=== PATIENT | female | born 1995 | race Caucasian/White ===

== ENCOUNTER 2016-06-26 19:21 | Emergency (ER) | payer OTHER ==
[~2016-06-26] VITALS: Ht 170.2 cm; Wt 60.9 kg
[~2016-06-26 19:21] MED LIST: FLEXERIL10 MG PO
[2016-06-26 20:24] VITALS: BP 123/74
== END 2016-06-26 20:24 | disposition home or self-care (01) ==
LOC: EME 19:21 → EXP 19:21
DX: J06.9 Acute upper respiratory infection, unspecified (principal); Z33.1 Pregnant state, incidental; Z3A.20 20 weeks gestation of pregnancy
CPT/HCPCS: 87651 90; 99281; 99284

== ENCOUNTER 2016-07-17 14:48 | Outpatient (CLI) | payer OTHER ==
[~2016-07-17] VITALS: Ht 170.2 cm; Wt 61.3 kg
[2016-07-17 14:49] VITALS: BP 117/78
[2016-07-17] MEDS ORDERED: FERROUS SULFAT325 MG PO (15:16)
[2016-07-17] MEDS ORDERED: PRENATAL TABLE1 EAC3 PO (15:16)
[2016-07-17 15:38] VITALS: BP 109/70
[2016-07-17 15:48] LABS: EOSINOPHIL (%) 0.5 % (0-5); EOSINOPHIL COUNT 0.1 K/uL (0-0.3); HEMATOCRIT 31.2 % (36.0-46.0); IMMATURE GRANULOCYTE (%) 0.4 % (0.0-0.7); IMMATURE GRANULOCYTE COUNT 0.1 K/uL; LYMPHOCYTE COUNT 0.8 K/uL (1.0-2.8); MCH 29.1 PG (29.0-34.0); MCHC 33.7 G/DL (30.0-36.0); MCV 86.4 FL (83-99); MONOCYTE (%) 4.1 % (3-12); MONOCYTE COUNT 0.5 K/uL (0-0.8); NEUTROPHIL (%) 88.4 % (45-76); NEUTROPHIL COUNT 10.7 K/uL (1.8-6.4); PLATELET COUNT 252 K/uL (156-360); RBC DIS.WIDTH-CV 13.8 % (11.8-14.6); RBC DIS.WIDTH-SD 42.6 % (39-53); RED BLOOD COUNT 3.61 M/uL (3.80-5.20); WHITE BLOOD COUNT 12.1 K/uL (4.1-10.2)
[2016-07-17 15:55] LABS: ADD MIUA? YES; BILIRUBIN NEGATIVE; BLOOD NEGATIVE; COLOR YELLOW ((YELLOW)); GLUCOSE (STRIP) NEGATIVE; KETONES NEGATIVE; LEUKOCYTES SMALL; NITRITE NEGATIVE; PROTEIN (STRIP) NEGATIVE; SPECIFIC GRAVITY 1.015 (1.000-1.030); UROBILINOGEN 0.2 MG/DL (0.2-1.0)
[2016-07-17 16:18] LABS: ANION GAP 7 MEQ/L (2-14); CHLORIDE 104 MEQ/L (99-109); POTASSIUM 3.6 MEQ/L (3.7-5.4); SAMPLE HEMOLYSIS CHECK 0; SAMPLE ICTERIC CHECK 0; SAMPLE LIPEMIA CHECK 0; SODIUM 135 MEQ/L (136-147); TOTAL BILIRUBIN 0.5 MG/DL (0.0-1.0)
[2016-07-17 16:24] LABS: ALKALINE PHOSPHATASE 79 IU/L (3-129); GFR ESTIMATE (CALCULATED) > 59 mL/min/; GLUCOSE 78 mg/dL (70-99); UREA NITROGEN (BUN) 8 mg/dL (9-23)
[2016-07-17 16:26] VITALS: BP 107/64
[2016-07-17 17:12] LABS: BACTERIA 2+ /HPF; EPITHELIAL CELLS 2+ /HPF; MUCUS 1+ /LPF; RED BLOOD CELLS 0-5 /HPF (0-5); UCUL ADDED? YES
== END 2016-07-17 17:10 | disposition home or self-care (01) ==
LOC: LDRP-OP 14:48 → 2WEST 14:49 → LDRP-OP 11-13 11:34
PROVIDERS: Nurse Practitioner
DX: O21.0 Mild hyperemesis gravidarum (principal); O99.89 Other specified diseases and conditions complicating pregnancy, childbirth and the puerperium; Z3A.27 27 weeks gestation of pregnancy
CPT/HCPCS: 59025; 80053; 81003; 85025; 87086; G0378; J2765; J7120

== ENCOUNTER 2016-07-21 06:49 | Outpatient (CLI) | payer OTHER ==
[~2016-07-21] VITALS: Ht 170.2 cm; Wt 62.1 kg
[~2016-07-21 06:49] MED LIST changes: +FERROUS SULFAT325 MG PO; +PRENATAL TABLE1 EAC3 PO
[2016-07-21 07:06] VITALS: BP 115/71
== END 2016-07-21 12:04 | disposition home or self-care (01) ==
LOC: LDRP-OP 06:49 → 2WEST 06:50 → LDRP-OP 11-13 17:19
DX: O26.852 Spotting complicating pregnancy, second trimester (principal); Z3A.28 28 weeks gestation of pregnancy; W19.XXXA Unspecified fall, initial encounter; Y99.8 Other external cause status
CPT/HCPCS: 59025; 85460; G0378

== ENCOUNTER 2016-08-18 04:01 | Outpatient (CLI) | payer OTHER ==
[2016-08-18 04:25] VITALS: BP 108/77
[2016-08-18 08:46] VITALS: BP 133/77
== END 2016-08-18 09:13 | disposition home or self-care (01) ==
LOC: LDRP-OP 04:01 → 2WEST 04:02 → LDRP-OP 11-13 19:09
DX: Z03.79 Encounter for other suspected maternal and fetal conditions ruled out (principal); W19.XXXA Unspecified fall, initial encounter; Z3A.32 32 weeks gestation of pregnancy
CPT/HCPCS: 59025; G0378

== ENCOUNTER 2016-09-27 14:12 | Outpatient (CLI) | payer OTHER ==
[2016-09-27 15:30] VITALS: BP 126/79
== END 2016-09-27 16:19 | disposition home or self-care (01) ==
LOC: LDRP-OP 14:12 → 2WEST 14:13 → LDRP-OP 11-14 09:17
DX: O47.1 False labor at or after 37 completed weeks of gestation (principal); Z3A.37 37 weeks gestation of pregnancy
CPT/HCPCS: 59025; G0378

== ENCOUNTER 2016-10-09 07:34 | Inpatient (IN) | payer OTHER ==
[~2016-10-09] VITALS: Ht 170.2 cm; Wt 64.8 kg
[2016-10-09] VITALS (16 sets, daily range): BP systolic 100–120; BP diastolic 56–86
[2016-10-09 09:12] LABS: EOSINOPHIL (%) 0.1 % (0-5); HEMATOCRIT 35.9 % (36.0-46.0); IMMATURE GRANULOCYTE (%) 0.7 % (0.0-0.7); IMMATURE GRANULOCYTE COUNT 0.1 K/uL; INSTRUMENT ABS NEUTROPHIL CT 11.7 K/uL; LYMPHOCYTE COUNT 1.5 K/uL (1.0-2.8); MCH 27.5 PG (29.0-34.0); MCHC 32.6 G/DL (30.0-36.0); MCV 84.5 FL (83-99); MEAN PLAT.VOLUME 12.2 uM^3 (9.5-12.4); MONOCYTE (%) 4.9 % (3-12); MONOCYTE COUNT 0.7 K/uL (0-0.8); NEUTROPHIL (%) 83.4 % (45-76); NEUTROPHIL COUNT 11.7 K/uL (1.8-6.4); PLATELET COUNT 240 K/uL (156-360); RBC DIS.WIDTH-CV 14.4 % (11.8-14.6); RBC DIS.WIDTH-SD 43.4 % (39-53); RED BLOOD COUNT 4.25 M/uL (3.80-5.20)
[2016-10-09] MEDS ORDERED: IBUPROFEN800 MG PO (15:43)
[2016-10-10 07:20] VITALS: BP 118/67
[2016-10-10 15:10] VITALS: BP 121/76
[2016-10-10 23:25] VITALS: BP 129/84
[2016-10-11 07:05] VITALS: BP 128/73
== END 2016-10-11 14:11 | disposition home or self-care (01) | DRG 775 ==
LOC: LDRP-OP 07:34 → 2WEST 07:35 → LDRP-OP 11-14 16:43
PROVIDERS: Nurse Practitioner
PROC: 10E0XZZ Delivery of Products of Conception, External Approach (ICD-10-PCS; principal; 2016-10-09)
PROC: 00HU33Z Insertion of Infusion Device into Spinal Canal, Percutaneous Approach (ICD-10-PCS; principal; 2016-10-09)
PROC: 3E0R3CZ (ICD-10-PCS; principal; 2016-10-09)
PROC: 10907ZC Drainage of Amniotic Fluid, Therapeutic from Products of Conception, Via Natural or Artificial Opening (ICD-10-PCS; principal; 2016-10-09)
DX: O99.324 Drug use complicating childbirth (principal); F11.20 Opioid dependence, uncomplicated; E75.29 Other sphingolipidosis; F41.9 Anxiety disorder, unspecified; G43.909 Migraine, unspecified, not intractable, without status migrainosus; L30.9 Dermatitis, unspecified; O99.02 Anemia complicating childbirth; Z3A.39 39 weeks gestation of pregnancy; Z37.0 Single live birth
CPT/HCPCS: 85025; C1755; J1050; J2405; J3010; J7120

== ENCOUNTER 2016-10-15 14:40 | Emergency (ER) | payer OTHER ==
[~2016-10-15] VITALS: Ht 170.2 cm; Wt 58.0 kg
[~2016-10-15 14:40] MED LIST changes: +IBUPROFEN800 MG PO
[2016-10-15 18:25] VITALS: BP 141/95
== END 2016-10-15 18:27 | disposition home or self-care (01) ==
LOC: EME 14:40
PROC: 3E0S3GC Introduction of Other Therapeutic Substance into Epidural Space, Percutaneous Approach (ICD-10-PCS; principal; 2016-10-15)
DX: O89.4 Spinal and epidural anesthesia-induced headache during the puerperium (principal); G97.1 Other reaction to spinal and lumbar puncture; Y84.4 Aspiration of fluid as the cause of abnormal reaction of the patient, or of later complication, without mention of misadventure at the time of the procedure; M54.5 Low back pain; R33.9 Retention of urine, unspecified; Z87.891 Personal history of nicotine dependence
CPT/HCPCS: 77003; 99281; 99283; C1755